=== PATIENT | male | born 1960 | race Caucasian/White ===

== ENCOUNTER 2018-02-09 17:39 | Emergency (ER) | payer BC, OTHER ==
[2018-02-09] MEDS: LIDOCAINE 2% (MDV) 20 ML INJ INJ (18:06)
[2018-02-09] MEDS: DIPHTH/TET/ACEL PERTUSS (ADULT) 0.5 ML VIAL IM (18:17)
== END 2018-02-09 18:47 | disposition home or self-care (01) ==
LOC: FTE 17:39
DX: S61.213A Laceration without foreign body of left middle finger without damage to nail, initial encounter (principal); E11.9 Type 2 diabetes mellitus without complications; I10 Essential (primary) hypertension; W26.9XXA Contact with unspecified sharp object(s), initial encounter; Y92.9 Unspecified place or not applicable; Z23 Encounter for immunization
CPT/HCPCS: 12001; 90471; 90715; 99283-25